=== PATIENT | male | born 1995 | race Caucasian/White ===

== ENCOUNTER 2018-06-10 17:10 | Emergency (ER) | payer OTHER ==
[2018-06-10 17:15] VITALS: BP 113/71
--- NOTE | 2018-06-10 17:43 | EDPHY ---
H & P Smoking Status: Never smoked Time Seen by Provider: 06/10/18 17:28 HPI/ROS: CHIEF COMPLAINT: Sore throat x5 days,"I think I have strep" HISTORY OF PRESENT ILLNESS: 22-year-old immunocompetent male complaining of 5 days of exudate of pharyngitis, right otalgia. No fever no chills no cough no URI symptoms. No chest pain no abdominal pain no flank pain. PRIMARY CARE PROVIDER: REVIEW OF SYSTEMS: 10 systems reviewed and negative with the exception of the elements mentioned in the history of present illness PAST MEDICAL & SURGICAL HISTORY: No pertinent medical or surgical history SOCIAL HISTORY: Nonsmoker PHYSICAL EXAM (Prior to examination, patient consented to physical exam, hands were washed and my usual and customary physical exam procedures followed) 1) GENERAL: Well-developed, well-nourished, alert and oriented. Appears to be in no acute distress. 2) HEAD: Normocephalic, atraumatic 3) HEENT: Pupils equal, round, reactive to light bilaterally. Sclera anicteric. Oropharynx: No trismus no drooling no hot potato voice, bilateral tonsils are symmetrically enlarged with exudate. No trismus no drooling.] Ears bilaterally with normal tympanic membranes. Specifically the right ear has no evidence of otitis media or otitis externa, no otorrhea, nontender mastoid bilaterally. 4) NECK: Full range of motion, no meningeal signs. Positive submandibular adenopathy which is tender bilaterally. No nuchal rigidity. 5) LUNGS: Clear auscultation bilaterally, no wheezes, no rhonchi, no retractions. 6) HEART: Regular rate and rhythm, no murmur, no heave, no gallop. 7) ABDOMEN: No guarding, no rebound, no focal tenderness, negative McBurney's, negative Sanchez's, negative Rovsing's, negative peritoneal sign, 8) MUSCULOSKELETAL: Moving all extremities, no focal areas of tenderness, no obvious trauma. No peripheral edema or discoloration. 9) BACK: No CVA tenderness, no midline vertebral tenderness, no fluctuance, no step-off, no obvious trauma, no visual or palpable abnormality. 10) SKIN: No rash, no petechiae. 11) Psychiatric: Patient is oriented X 3, there is no agitation. DIFFERENTIAL DIAGNOSIS: In no particular order, my differential diagnosis includes, but is not limited to, strep pharyngitis, viral pharyngitis, peritonsillar abscess, retropharyngeal abscess or plegmon, mononucleosis, meningitis, Lemierre syndrome. (Tex Lara) Constitutional: Initial Vital Signs Temperature (C) 38.1 C 06/10/18 17:12 Heart Rate 98 06/10/18 17:12 Respiratory Rate 16 06/10/18 17:12 Blood Pressure 113/71 06/10/18 17:12 O2 Sat (%) 96 06/10/18 17:12 O2 Delivery Mode Room Air Allergies/Adverse Reactions: No Known Allergies Allergy (Unverified 06/10/18 17:12) Home Medications: Medication Instructions Recorded Penicillin V Potassium [Pen Vk] 500 mg PO Q6 10 Days tab 06/10/18 methylPREDNISolone [Medrol Dose 4 mg PO DAILY #1 ea 06/10/18 Aba] MDM/Departure - MDM ED Course/Re-evaluation: High clinical suspicion for strep pharyngitis. Recommend empiric treatment. Doubt peritonsillar abscess, doubt Lemierre syndrome. Will initiate antibiotic therapy with Pen-VK, Solu-Medrol Dosepak. Usual and customary pharyngitis precautions and instructions provided. I saw this patient independently based on established practice protocols. Care of patient under supervision of secondary supervising physician Dr Carlton with whom I discussed case. (Tex Lara) The patient was evaluated and managed by the Physician Washer Engineer. My co- signature indicates that I have reviewed this chart and I agree with the findings and plan of care as documented. I am the secondary supervising physician, not Dr. Carlton. (Arabella Figueroa) - Depart Disposition: Home, Routine, Self-Care Clinical Impression: Acute streptococcal pharyngitis Condition: Good Instructions: Strep Throat (ED) Additional Instructions: Return to the ER immediately if you cannot swallow, have drooling, fevers, neck stiffness, cannot open your jaw, or any other symptoms that concern you. Stand Alone Forms: School Excuse, Work Excuse Prescriptions: methylPREDNISolone [Medrol Dose Aba] 4 mg PO DAILY #1 ea Penicillin V Potassium [Pen Vk] 500 mg PO Q6 10 Days tab Referrals: Vicky Gutierrez MD [Medical Doctor] - 2-3 days, call for appt.
== END 2018-06-10 18:04 | disposition home or self-care (01) ==
DX: J02.0 Streptococcal pharyngitis (principal)